=== PATIENT | male | born 1975 | race Two or more races ===

== ENCOUNTER 2024-09-27 17:58 | Inpatient (IN) | payer OTHER, MEDICARE ==
[~2024-09-27] VITALS: Ht 175.3 cm; Wt 75.0 kg
--- NOTE | 2024-09-27 18:14 | ED.PDOC ---
Psychiatric HPI Comments 49 y.o male presents to the ED via EMS for an evaluation of an overdose. 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 Patient had about 51 tablets out of 90 in the bottle but it is unknown when patient refilled rx. Patient had a BG of 62, EMS gave D10 with a repeat BG of 215. Patient presents asymptomatic at this time Chief Complaint: Overdose Time Seen by MD: 17:57 Reviewed Notes: Nurses Notes, Flying Squad Salesperson Notes, Medications, Allergies Information Source: Patient, Emergency Med Personnel Mode of Arrival: EMS Severity: Unable to Care for Self Severity of Pain: None Severity of Mental Status: Moderate Severity of Symptoms: Moderate Timing: Hours Duration: Since onset Presents with: Suicidal Ideation Ingestion: Intentional Circumstance: Medical Clearance Stressors: None History of: None Associated signs and symptoms: Other Past Medical History PAST MEDICAL HISTORY: Depression, MA Surgical History (Other): neck Family History Family History: Reviewed,noncontributory to illness Social History Smoker: Non-Smoker Alcohol: Occasionally Drugs: Denies Drug Use Lives In: Home Constitutional: denies: chills, diaphoresis, fatigue, fever, malaise, sweats, weakness, others EENTM: denies: blurred vision, double vision, ear bleeding, ear discharge, ear drainage, ear pain, ear ringing, eye pain, eye redness, hearing loss, mouth pain, mouth swelling, nasal discharge, nose bleeding, nose congestion, nose pain, photophobia, tearing, throat pain, throat swelling, voice changes, others Respiratory: denies: cough, hemoptysis, orthopnea, SOB at rest, shortness of breath, SOB with excertion, stridor, wheezing, others Cardiovascular: denies: chest pain, dizzy spells, diaphoresis, Dyspnea on exertion, edema, irregular heart beat, left arm pain, lightheadedness, palpitations, PND, syncope, others Gastrointestinal: denies: abdomen distended, abdominal pain, blood streaked bowels, constipated, diarrhea, dysphagia, difficulty swallowing, hematemesis, melena, nausea, poor appetite, poor fluid intake, rectal bleeding, rectal pain, vomiting, others Genitourinary: denies: burning, dysuria, flank pain, frequency, hematuria, incontinence, penile discharge, penile sore, pain, testicle pain, testicle swelling, urgency, others Neurological: denies: dizziness, fainting, headache, left sided numbness, left sided weakness, numbness, paresthesia, pre-existing deficit, right sided numbness, right sided weakness, seizure, speech problems, tingling, tremors, weakness, others Musculoskeletal: denies: back pain, gout, joint pain, joint swelling, muscle pain, muscle stiffness, neck pain, others Integumetry: denies: bruises, change in color, change in hair/nails, dryness, laceration, lesions, lumps, rash, wounds, others Allergic/Immunocompromised: denies: Difficulty Healing, Frequent Infections, Hives, Itching, others Hematologic/Lymphatic: denies: anemia, blood clots, easy bleeding, easy bruising, swollen glands, others Endocrine: denies: excessive hunger, excessive sweating, excessive thirst, excessive urination, flushing, intolerance to cold, intolerance to heat, unexplained weight gain, unexplained weight loss, others Psychiatric: reports: suicidal; denies: anxiety, bipolar disorder, depression, hopeless, panic disorder, schizophrenia, sleepless, others All Other Systems: Reviewed and Negative Physical Exam General Appearance: Moderate Distress HEENT: Pale Conjuntivae (L), Pale Conjuntivae (R), Pharynx Normal, TMs Normal Neck: Full Range of Motion, Non-Tender, Normal, Normal Inspection Respiratory: Chest Non-Tender, Lungs Clear, No Accessory Muscle Use, No Respi ratory Distress, Normal Breath Sounds Cardiovascular: No Edema, No JVD, No Murmur, No Gallop, Normal Peripheral Pulses, Regular Rate/Rhythm Breast Exam: Deferred Gastrointestinal: No Organomegaly, Non Tender, No Pulsatile Mass, Normal Bowel Sounds, Soft Genitalia: Deferred Pelvic: Deferred Rectal: Deferred Extremities: No calf tenderness, Normal capillary refill, No pedal edema Musculoskeletal : Apperance: Normal Neurologic: physiatrist II-XII nml as Tested, Motor Weakness, No Motor Deficits, No Sensory Deficits, Other (The patient has slight lethargy with a flat affect) Cerebellar Function: Unable to Test Reflexes: Normal Skin: Dry, Pallor, Warm Lymphatic: No Adenopathy Was a procedure done? Was a procedure done?: No Psych Differential Dx Psych. Differential Dx: Suicidal OD Differential Dx: Intentional, Suicidal Attempt, Suicidal Gesture X-Ray, Labs, Meds, VS Vital Signs Date Time Temp Pulse Resp B/P (MAP) Pulse Ox O2 Delivery O2 Flow Rate FiO2 09/27/24 18:41 84 16 97 Room Air* 0 21 09/27/24 18:39 98.8 84 16 121/82 (95) 97 98.8 09/27/24 18:04 98.8 84 16 121/82 (95) 97 98.8 Lab Test 09/27/24 19:17 09/27/24 18:48 Range/Units Urine Opiates Screen Pending Urine Fentanyl Screen Pending Urine Barbiturates Screen Pending Urine Phencyclidine Screen Pending Urine Amphetamines Screen Pending Urine Benzodiazepines Screen Pending Urine Cocaine Screen Pending Urine Cannabinoids Screen Pending White Blood Count 10.6 4.4-10.8 10^3/uL Red Blood Count 5.45 4.5-5.90 10^6/uL Hemoglobin 17.2 13.5-17.5 g/dL Hematocrit 50.0 41.0-53.0 % Mean Corpuscular Volume 91.8 80.0-100.0 fL Mean Corpuscular Hemoglobin 31.5 28.0-32.0 pg Mean Corpuscular Hemoglobin Concent 34.3 32.0-36.0 g/dL Red Cell Distribution Width 13.6 11.8-14.3 % Platelet Count 225 140-450 10^3/uL Mean Platelet Volume 7.6 6.9-10.8 fL Neutrophils (%) (Auto) 76.3 37.0-80.0 % Lymphocytes (%) (Auto) 17.2 10.0-50.0 % Monocytes (%) (Auto) 5.2 0.0-12.0 % Eosinophils (%) (Auto) 0.7 0.0-7.0 % Basophils (%) (Auto) 0.6 0.0-2.0 % Neutrophils # (Auto) 8.1 1.6-8.6 10 ^3/uL Lymphocytes # (Auto) 1.8 0.4-5.4 10 ^3/uL Monocytes # (Auto) 0.5 0-1.3 10 ^3/uL Eosinophils # (Auto) 0.1 0-0.8 10 ^3/uL Basophils # (Auto) 0.1 0-0.2 10 ^3/uL Nucleated Red Blood Cells 0.0 % Sodium Level 137 136-145 mmol/L Potassium Level 3.7 3.5-5.1 mmol/L Chloride Level 104 98-107 mmol/L Carbon Dioxide Level 20 20-31 mmol/L Anion Gap 13 5-15 Blood Urea Nitrogen 14 9-23 mg/dL Creatinine 0.94 0.700-1.30 mg/dL Glomerular Filtration Rate Calc 99 >90 mL/min BUN/Creatinine Ratio 14.9 10.0-20.0 Serum Glucose 154 H 74-106 mg/dL Calcium Level 9.3 8.7-10.4 mg/dL Total Bilirubin 0.5 0.2-1.0 mg/dL Aspartate Amino Transferase (AST) 31 13-40 U/L Alanine Aminotransferase (ALT) 27 7-40 U/L Alkaline Phosphatase 71 46-116 U/L Total Protein 7.0 5.7-8.2 g/dL Albumin 4.6 3.2-4.8 g/dL Salicylates Level < 3.0 -30 mg/dL Acetaminophen Level < 2.0 L 10.0-20.0 UG/ML Plasma/Serum Blood Alcohol 185.8 H <10 mg/dL Current Medications Medications (Trade) Dose Ordered Sig/Apurva Route Start Time Stop Time Status Last Admin Sodium Chloride 500 ml @ 500 mls/hr Q1H ONCE IVB 09/27/24 18:15 09/27/24 19:14 DC 09/27/24 18:36 IV Hep-Lock was established The patient was given normal saline at 500 cc bolus The patient is showing an alcohol level of 185 The salicylate level and acetaminophen level are negative We did call poison control and we will continue to monitor the patient's condition We are admitting the patient with a diagnosis of overdose and toxic encephalopathy Time of 1ST Reevaluation: 18:09 Reevaluation 1ST: Unchanged Patient Education/Counseling: Diagnosis, Treatment, Prognosis Family Education/Counseling: No Family Present Departure 1 Departure Time of Disposition: 20:18 Impression: Primary Impression: Intentional overdose Qualified Codes: T50.902A - Poisoning by unspecified drugs, medicaments and biological substances, intentional self-harm, initial encounter Additional Impressions: Toxic encephalopathy Qualified Codes: G92.9 - Unspecified toxic encephalopathy Suicide gesture Qualified Codes: X83.8XXA - Intentional self-harm by other specified means, initial encounter Disposition: 09 ADMITTED INPATIENT Admit to: Tele Condition: Fair Critical Care Note Critical Care Time?: Yes (35 min-critical care time only) Stability Stability form required: Yes Unstable for transfer: Telemetry monitoring (Telemetry monitoring required), ED Physician Assesment (Clinical assesment) I personally scribed for GIOVANNI LEDESMA MD ([email or web address]) on 09/27/24 at 18:14. Electronically submitted by Kina Sorensen ([facility]). GIOVANNI LEDESMA MD Sep 27, 2024 18:14
[2024-09-27] MEDS: SODIUM CHLORIDE 0.9% 500 ML IVB ONE (18:36)
[2024-09-27 18:41] VITALS: PULSE 84; RESP 16; O2SAT 97
[2024-09-27 19:15] LABS: Hematocrit 50.0 % (41.0-53.0); Hemoglobin 17.2 g/dL (13.5-17.5); Mean Corpuscular Hemoglobin 31.5 pg (28.0-32.0); Mean Corpuscular Volume 91.8 fL (80.0-100.0); Nucleated Red Blood Cells % 0.0 %
[2024-09-27 19:30] LABS: Alanine Aminotransferase 27 U/L (7-40); Alkaline Phosphatase 71 U/L (46-116); Anion Gap 13 (5-15); BUN/Creatinine Ratio 14.9 (10.0-20.0); Blood Urea Nitrogen 14 mg/dL (9-23); Calcium 9.3 mg/dL (8.7-10.4); Carbon Dioxide 20 mmol/L (20-31); Chloride 104 mmol/L (98-107); Potassium 3.7 mmol/L (3.5-5.1); Sodium 137 mmol/L (136-145); Total Protein 7.0 g/dL (5.7-8.2)
[2024-09-27 19:31] LABS: Albumin 4.6 g/dL (3.2-4.8); Bilirubin, Total 0.5 mg/dL (0.2-1.0)
[2024-09-27 19:33] LABS: Acetaminophen < 2.0 UG/ML (10.0-20.0); Glucose 154 mg/dL (74-106); Salicylate < 3.0 mg/dL (-30)
[2024-09-27 19:35] VITALS: PULSE 84; RESP 12; O2SAT 98
[2024-09-27 20:19] LABS: Amphetamine Screen, Urine Neg (NEGATIVE); Barbiturate Scree,Urine Neg (NEGATIVE); Benzodiazephine Screen, Urine Neg (NEGATIVE); Cannabinoid Screen, Urine Neg (NEGATIVE); Cocaine Screen, Urine Neg (NEGATIVE); Opiate Scree,Urine Neg (NEGATIVE); Phencyclidine Screen, Urine Neg (NEGATIVE)
--- NOTE | 2024-09-27 23:54 | DVHHP2 ---
History of Present Illness Reason for Visit: Overdose History of Present Illness 49-year-old male presents for evaluation of medication overdose. Patient reports taking an unknown amount of trazodone pills in an attempt to end his life. Patient does not want to discuss details. He denies dizziness blurred vision, cardiac or respiratory complaints. Past Medical History Liver disease, mi, depression Past Surgical History Denies Family History Noncontributory Smoke: No ALCOHOL: occassional Drugs: None Review of Systems Review of Systems Review of systems are currently negative otherwise addressed in HPI. Allergies: Coded Allergies: NO KNOWN ALLERGIES (Unverified , 09/27/24) Exam Vital Signs Vital Signs Date Time Temp Pulse Resp B/P (MAP) Pulse Ox O2 Delivery O2 Flow Rate FiO2 09/27/24 18:41 84 16 97 Room Air* 0 21 09/27/24 18:39 98.8 121/82 (95) 98.8 Exam Gen: 49-year-old male in no apparent distress. Skin: Warm, dry, normal color and texture, no rash. HEENT: Normocephalic atraumatic, mucous membranes moist and pink. Neck: Cervical and supraclavicular nodes normal without enlargement, trachea is midline, thyroid gland is normal without masses. Pulmonary: Clear to auscultation and percussion bilaterally. Cardiac: Regular rate and rhythm. No murmur Abdomen: Soft, nontender, nondistended, bowel sounds present all 4 quadrants, no guarding, no rigidity, no organomegaly. Extremities: No cyanosis, clubbing, no edema Neuro: Cranial nerves II through XII grossly intact, normal affect and speech, no focal motor deficits. Labs/Xrays Labs Test 09/27/24 19:17 09/27/24 18:48 Range/Units Urine Opiates Screen Neg NEGATIVE Urine Fentanyl Screen Neg NEGATIVE Urine Barbiturates Screen Neg NEGATIVE Urine Phencyclidine Screen Neg NEGATIVE Urine Amphetamines Screen Neg NEGATIVE Urine Benzodiazepines Screen Neg NEGATIVE Urine Cocaine Screen Neg NEGATIVE Urine Cannabinoids Screen Neg NEGATIVE White Blood Count 10.6 4.4-10.8 10^3/uL Red Blood Count 5.45 4.5-5.90 10^6/uL Hemoglobin 17.2 13.5-17.5 g/dL Hematocrit 50.0 41.0-53.0 % Mean Corpuscular Volume 91.8 80.0-100.0 fL Mean Corpuscular Hemoglobin 31.5 28.0-32.0 pg Mean Corpuscular Hemoglobin Concent 34.3 32.0-36.0 g/dL Red Cell Distribution Width 13.6 11.8-14.3 % Platelet Count 225 140-450 10^3/uL Mean Platelet Volume 7.6 6.9-10.8 fL Neutrophils (%) (Auto) 76.3 37.0-80.0 % Lymphocytes (%) (Auto) 17.2 10.0-50.0 % Monocytes (%) (Auto) 5.2 0.0-12.0 % Eosinophils (%) (Auto) 0.7 0.0-7.0 % Basophils (%) (Auto) 0.6 0.0-2.0 % Neutrophils # (Auto) 8.1 1.6-8.6 10 ^3/uL Lymphocytes # (Auto) 1.8 0.4-5.4 10 ^3/uL Monocytes # (Auto) 0.5 0-1.3 10 ^3/uL Eosinophils # (Auto) 0.1 0-0.8 10 ^3/uL Basophils # (Auto) 0.1 0-0.2 10 ^3/uL Nucleated Red Blood Cells 0.0 % Sodium Level 137 136-145 mmol/L Potassium Level 3.7 3.5-5.1 mmol/L Chloride Level 104 98-107 mmol/L Carbon Dioxide Level 20 20-31 mmol/L Anion Gap 13 5-15 Blood Urea Nitrogen 14 9-23 mg/dL Creatinine 0.94 0.700-1.30 mg/dL Glomerular Filtration Rate Calc 99 >90 mL/min BUN/Creatinine Ratio 14.9 10.0-20.0 Serum Glucose 154 H 74-106 mg/dL Calcium Level 9.3 8.7-10.4 mg/dL Total Bilirubin 0.5 0.2-1.0 mg/dL Aspartate Amino Transferase (AST) 31 13-40 U/L Alanine Aminotransferase (ALT) 27 7-40 U/L Alkaline Phosphatase 71 46-116 U/L Total Protein 7.0 5.7-8.2 g/dL Albumin 4.6 3.2-4.8 g/dL Salicylates Level < 3.0 -30 mg/dL Acetaminophen Level < 2.0 L 10.0-20.0 UG/ML Plasma/Serum Blood Alcohol 185.8 H <10 mg/dL SEPSIS Sepsis Screen Date sepsis recognized/suspect: Sep 27, 2024 Time Sepsis recognized/suspect: 1757 Recent Procedure: No On Antibiotic Therapy: No Respiratory Rate >20: No Heart Rate >90: No Temp<36 C (96.8 F) or >38.3 C: No SBP <90 or MAP <65 mmHG: No New Acute Mental Status Change: No Is the patient on CPAP, BIPAP,: No Physician Orders Building Maintenance Repairer (09/27/24 18:09) Blood Pressure (09/27/24 18:09) Pulse Oximetry (09/27/24 18:09) Heplock Iv (09/27/24 18:09) Electrocardigram (09/27/24 18:09) * Psychiatric Consult (09/27/24 23:49) Regular Diet (09/28/24 Breakfast) Admit (09/27/24 23:49) Ondansetron Hcl (Zofran) (09/28/24 00:00) Complete Blood Count (09/28/24 04:00) Comprehensive Metabolic Panel (09/28/24 04:00) Condition: Stable (09/27/24 23:49) Acetaminophen Tablet (Tylenol Tablet) (09/28/24 00:00) Bedrest With Bathroom Privileg (09/27/24 23:49) Vital Signs Date Time Temp Pulse Resp B/P (MAP) Pulse Ox O2 Delivery O2 Flow Rate FiO2 09/27/24 18:41 84 16 97 Room Air* 0 21 09/27/24 18:39 98.8 84 16 121/82 (95) 97 98.8 09/27/24 18:04 98.8 84 16 121/82 (95) 97 98.8 Laboratory Tests Test 09/27/24 18:48 White Blood Count 10.6 10^3/uL (4.4-10.8) Medications Medications Dose Ordered Sig/Apurva Route Start Time Stop Time Status Last Admin Dose Admin Sodium Chloride 500 ml @ 500 mls/hr Q1H ONCE IVB 09/27/24 18:15 09/27/24 19:14 DC 09/27/24 18:36 500 MLS/HR Assessment/Plan Assessment/Plan Assessment Toxic encephalopathy Alcohol intoxication Suicide attempt Medication overdose Plan Admit the patient to [facility] to the hospitalist Psychiatric evaluation Continue treatment per orders. Plan discussed with: Patient My Orders Orders - EDWIGE LEWIS Procedure Category Date Status Time * Psychiatric Consult CONS 09/27/24 Verified 23:49 Regular Diet DIET 09/28/24 Verified Breakfast Admit ADMIT 09/27/24 Verified 23:49 Ondansetron Hcl PHA 09/28/24 Verified (Zofran) 00:00 Complete Blood Count LAB 09/28/24 Verified 04:00 Comprehensive LAB 09/28/24 Verified Metabolic Panel 04:00 Condition: Stable ANURAG 09/27/24 Verified 23:49 Acetaminophen Tablet PHA 09/28/24 Verified (Tylenol Tablet) 00:00 Bedrest With Bathroom ANURAG 09/27/24 Verified Privileg 23:49 Date of Service: Sep 27, 2024 Billing Provider: EDWIGE LEWIS Common Visit Codes: [id number] INP/OBS CARE (HIGH) EDWIGE LEWIS Sep 27, 2024 23:54
[2024-09-28] MEDS ORDERED: ACETAMINOPHEN 325 MG TAB PO PRN
[2024-09-28] MEDS ORDERED: ONDANSETRON HCL 4 MG/2 ML VIAL IV PRN
[2024-09-28] MEDS: SODIUM CHLORIDE 0.9% 1,000 ML IV ONE (00:30)
--- NOTE | 2024-09-28 02:32 | DVHINCON2 ---
Date of Service if different f: Sep 28, 2024 Time of Service: 02:08 Consultation ([facility]) Consulting Physician: JANIYA HERNANDEZ MD Labs Laboratory Tests Test 09/27/24 18:48 09/27/24 19:17 White Blood Count 10.6 10^3/uL (4.4-10.8) Red Blood Count 5.45 10^6/uL (4.5-5.90) Hemoglobin 17.2 g/dL (13.5-17.5) Hematocrit 50.0 % (41.0-53.0) Mean Corpuscular Volume 91.8 fL (80.0-100.0) Mean Corpuscular Hemoglobin 31.5 pg (28.0-32.0) Mean Corpuscular Hemoglobin Concent 34.3 g/dL (32.0-36.0) Red Cell Distribution Width 13.6 % (11.8-14.3) Platelet Count 225 10^3/uL (140-450) Mean Platelet Volume 7.6 fL (6.9-10.8) Neutrophils (%) (Auto) 76.3 % (37.0-80.0) Lymphocytes (%) (Auto) 17.2 % (10.0-50.0) Monocytes (%) (Auto) 5.2 % (0.0-12.0) Eosinophils (%) (Auto) 0.7 % (0.0-7.0) Basophils (%) (Auto) 0.6 % (0.0-2.0) Neutrophils # (Auto) 8.1 10 ^3/uL (1.6-8.6) Lymphocytes # (Auto) 1.8 10 ^3/uL (0.4-5.4) Monocytes # (Auto) 0.5 10 ^3/uL (0-1.3) Eosinophils # (Auto) 0.1 10 ^3/uL (0-0.8) Basophils # (Auto) 0.1 10 ^3/uL (0-0.2) Nucleated Red Blood Cells 0.0 % Sodium Level 137 mmol/L (136-145) Potassium Level 3.7 mmol/L (3.5-5.1) Chloride Level 104 mmol/L (98-107) Carbon Dioxide Level 20 mmol/L (20-31) Anion Gap 13 (5-15) Blood Urea Nitrogen 14 mg/dL (9-23) Creatinine 0.94 mg/dL (0.700-1.30) Glomerular Filtration Rate Calc 99 mL/min (>90) BUN/Creatinine Ratio 14.9 (10.0-20.0) Serum Glucose 154 mg/dL (74-106) Calcium Level 9.3 mg/dL (8.7-10.4) Total Bilirubin 0.5 mg/dL (0.2-1.0) Aspartate Amino Transf (AST/SGOT) 31 U/L (13-40) Alanine Aminotransferase (ALT/SGPT) 27 U/L (7-40) Alkaline Phosphatase 71 U/L (46-116) Total Protein 7.0 g/dL (5.7-8.2) Albumin 4.6 g/dL (3.2-4.8) Salicylates Level < 3.0 mg/dL (-30) Acetaminophen Level < 2.0 UG/ML (10.0-20.0) Plasma/Serum Blood Alcohol 185.8 mg/dL (<10) Urine Opiates Screen Neg (NEGATIVE) Urine Fentanyl Screen Neg (NEGATIVE) Urine Barbiturates Screen Neg (NEGATIVE) Urine Phencyclidine Screen Neg (NEGATIVE) Urine Amphetamines Screen Neg (NEGATIVE) Urine Benzodiazepines Screen Neg (NEGATIVE) Urine Cocaine Screen Neg (NEGATIVE) Urine Cannabinoids Screen Neg (NEGATIVE) Appearance: Stated age Psychomotor activity: WNL Behavioral: Cooperative Eye contact: Appropriate Speech: WNL Affect: Appropriate, Mood Congruent Mood: Depressed Thought processes: Linear/Goal-directed Thought content: WNL Suicidal ideations: Absent Homicidal ideations: Absent Orientation: Person, Place, Time, Situation Memory intact: Recent Intellect: Average Abstractability: WNL Concentration: Adequate Attention: Adequate Judgement: WNL Insight: Fair Vitals Vital Signs Date Time Temp Pulse Resp B/P (MAP) Pulse Ox O2 Delivery O2 Flow Rate FiO2 09/28/24 00:00 87 15 126/82 (97) 93 09/27/24 20:00 97.8 97.8 09/27/24 19:35 Room Air* 0 21 Current medications Current Medications Medications Dose Ordered Sig/Apurva Route Start Time Stop Time Status Last Admin Dose Admin Ondansetron HCl 4 mg Q4HP PRN IV 09/28/24 00:00 Acetaminophen 650 mg Q6HP PRN PO 09/28/24 00:00 Treatment plan discussed: With staff Medication adjusted: No Labs ordered: No Psychotherapy provided: No Type: Voluntary History of Present Illness Reason for Consult : psychiatric evaluation PER ED PHYSICIAN NOTE:49 y.o male presents to the ED via EMS for an evaluation of an overdose. 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 Patient had about 51 tablets out of 90 in the bottle but it is unknown when patient refilled rx. Patient had a BG of 62, EMS gave D10 with a repeat BG of 215. Patient presents asymptomatic at this time PSYCHIATRIST HPI: The patient was seen and evalauted at [facility] ED via telepsychiatry platform. 49 yr old male BIBMiles after taking an overdose on Trazodone. The patient reported that he took some extra trazodone pills because was unable to sleep. He stated "I don't know if I wanted to or just go to sleep." He noted he has had some suicidal thoughts due to feeling down and dep ressed. He reported he takes trazodone at night so he can sleep. If he doesn't take it, his sleep is poor. He stated he took a few extra tonight and didn't realize it would hit him this hard. He stated he feels like he should see the [facility] psychiatrist soon. He stated he does not feel suicidal currently and reported he feels comfortable returning. He denied having suicidal or homicidal ideation, plan or intent. He denied having auditory or visual hallucinations.. Past Psychiatric History : Diagnosed with depression and PTSD at [facility]. Gets care at [facility] in [place]. No past psych hospitalizations. Past Medical History: GERD, shattered C3-C7 Current Medications: Trazodone 100mg qhs, omeprazole, spironolactone, NKDA Substance use: Alcohol-heavy use in the past. Drinks an occasional beer or two. Denied other substance use. 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 100% service connected. Receives disability from [employer]. Diagnosis: UNSPECIFIED DEPRESSIVE DISORDER; H/O PTSD Formulation: This 49 yr old male appears to suffer from depression and PTSD. He is not suicidal and does not warrant admission to a behavioral health unit. Plan: 1. Safety. The patient is a low risk for self harm and may be managed as an outpatient. 2. Legal-Voluntary. 3. Medication:continue present outpatient regimen. 4. Contact psychiatry if further evaluation or follow up is desired. 5. Case discussed with ED physician. Assessment/Diagnosis/Plan Reviewed: Labs, Medications, Previous Orders JANIYA HERNANDEZ MD Sep 28, 2024 02:10
[2024-09-28 06:50] LABS: Hematocrit 44.8 % (41.0-53.0); Hemoglobin 15.9 g/dL (13.5-17.5); Mean Corpuscular Hemoglobin 32.2 pg (28.0-32.0); Mean Corpuscular Volume 90.8 fL (80.0-100.0); Nucleated Red Blood Cells % 0.1 %
[2024-09-28 06:53] LABS: Alanine Aminotransferase 21 U/L (7-40); Alkaline Phosphatase 69 U/L (46-116); Anion Gap 8 (5-15); BUN/Creatinine Ratio 18.9 (10.0-20.0); Blood Urea Nitrogen 20 mg/dL (9-23); Calcium 9.3 mg/dL (8.7-10.4); Carbon Dioxide 23 mmol/L (20-31); Potassium 4.2 mmol/L (3.5-5.1); Sodium 139 mmol/L (136-145); Total Protein 6.3 g/dL (5.7-8.2)
[2024-09-28 06:54] LABS: Albumin 4.2 g/dL (3.2-4.8); Bilirubin, Total 0.7 mg/dL (0.2-1.0)
[2024-09-28 06:58] LABS: Chloride 108 mmol/L (98-107); Glucose 108 mg/dL (74-106)
[2024-09-28 07:30] VITALS: TEMP 98
--- NOTE | 2024-09-28 11:06 | ECG ---
[facility] Test Date: 2024-09-27 Test Time: 18:01:49 Pat Name: JAXON SCOTT Department: ED Room: [address] [place] [address] A Gender: M Creative Intern: haylee : 1975 Requested By: GIOVANNI LEDESMA Order Number: [id number] Reading MD: Miko Workman Measurements Intervals [place] Rate: 85 P: 64 NV: 187 QRS: -23 QRSD: 90 T: 57 QT: 380 QTc: 452 Interpretive Statements Sinus rhythm Borderline left axis deviation ST elev, probable normal early repol pattern Electronically Signed On 09-29-2024 17:50:48 PDT by Miko Workman Please click the below link to view image of tracing.
--- NOTE | 2024-09-28 13:08 | DVHDS2 ---
Discharge Summary Date of Admission Sep 27, 2024 at 23:49 Date of Discharge: Sep 28, 2024 Labs/Diagnostic Data: Laboratory Results Test 09/28/24 05:59 09/27/24 19:17 09/27/24 18:48 White Blood Count 10.7 10^3/uL (4.4-10.8) Red Blood Count 4.94 10^6/uL (4.5-5.90) Hemoglobin 15.9 g/dL (13.5-17.5) Hematocrit 44.8 % (41.0-53.0) Mean Corpuscular Volume 90.8 fL (80.0-100.0) Mean Corpuscular Hemoglobin 32.2 pg (28.0-32.0) Mean Corpuscular Hemoglobin Concent 35.4 g/dL (32.0-36.0) Red Cell Distribution Width 13.3 % (11.8-14.3) Platelet Count 210 10^3/uL (140-450) Mean Platelet Volume 8.0 fL (6.9-10.8) Neutrophils (%) (Auto) 69.3 % (37.0-80.0) Lymphocytes (%) (Auto) 19.2 % (10.0-50.0) Monocytes (%) (Auto) 9.1 % (0.0-12.0) Eosinophils (%) (Auto) 1.8 % (0.0-7.0) Basophils (%) (Auto) 0.6 % (0.0-2.0) Neutrophils # (Auto) 7.4 10 ^3/uL (1.6-8.6) Lymphocytes # (Auto) 2.0 10 ^3/uL (0.4-5.4) Monocytes # (Auto) 1.0 10 ^3/uL (0-1.3) Eosinophils # (Auto) 0.2 10 ^3/uL (0-0.8) Basophils # (Auto) 0.1 10 ^3/uL (0-0.2) Nucleated Red Blood Cells 0.1 % Sodium Level 139 mmol/L (136-145) Potassium Level 4.2 mmol/L (3.5-5.1) Chloride Level 108 mmol/L (98-107) Carbon Dioxide Level 23 mmol/L (20-31) Anion Gap 8 (5-15) Blood Urea Nitrogen 20 mg/dL (9-23) Creatinine 1.06 mg/dL (0.700-1.30) Glomerular Filtration Rate Calc 86 mL/min (>90) BUN/Creatinine Ratio 18.9 (10.0-20.0) Serum Glucose 108 mg/dL (74-106) Calcium Level 9.3 mg/dL (8.7-10.4) Total Bilirubin 0.7 mg/dL (0.2-1.0) Aspartate Amino Transferase (AST) 29 U/L (13-40) Alanine Aminotransferase (ALT) 21 U/L (7-40) Alkaline Phosphatase 69 U/L (46-116) Total Protein 6.3 g/dL (5.7-8.2) Albumin 4.2 g/dL (3.2-4.8) Urine Opiates Screen Neg (NEGATIVE) Urine Fentanyl Screen Neg (NEGATIVE) Urine Barbiturates Screen Neg (NEGATIVE) Urine Phencyclidine Screen Neg (NEGATIVE) Urine Amphetamines Screen Neg (NEGATIVE) Urine Benzodiazepines Screen Neg (NEGATIVE) Urine Cocaine Screen Neg (NEGATIVE) Urine Cannabinoids Screen Neg (NEGATIVE) Salicylates Level < 3.0 mg/dL (-30) Acetaminophen Level < 2.0 UG/ML (10.0-20.0) Plasma/Serum Blood Alcohol 185.8 mg/dL (<10) Other Laboratory Tests 09/28/24 05:59 Brief Hx & Hospital Course: Final diagnoses: Depression Drug overdose PTSD Insomnia No suicidal attempt or ideation History of GERD History of cervical spine injury 49-year-old male who was admitted because he took extra pills of his trazodone. He takes trazodone 100 mg at bedtime usually but last night he took extra because he could not sleep. He denies suicidal ideation or attempt He has depression and he sees a psychiatrist He has insomnia Use seen by Psychiatry consultation and he was deemed not a suicidal and low risk for self-harm and therefore he was cleared for discharge The patient would like to go home Discharged home Follow up with his primary care physician Follow up with his psychiatrist as scheduled Continue trazodone 100 mg at bedtime Condition at Discharge: Stable Final Diagnosis/Problems List Depression Drug OD PTSD Discharge Disposition: Home SNF Discharge Will this Physician continue t: No Discharge Instruct/Medications Diet: Regular Activity: No Restrictions, As Tolerated Follow Up/Referral: PCP KATHY His psychiatrist as scheduled Medications: Same home meds (Trazodone 100 mg qhs) Discharge Statement: "Patient was advised to return to the ER or call 911 if any headaches, dizziness, shortness of breath, chest pain, abdominal pain, bleeding, fevers, or worsening of medical condition. Patient was counseled about treatment plan, medications, possible side effects, patientverbalized understanding. All questions were answered to the best of my ability. This discharge took greater then 30 minutes in planning, reviewing documentation, counseling the patient, and discussing with other team members." ASSESSMENT ASSESSMENT Assessment Depression Drug OD PTSD Date of Service: Sep 28, 2024 Billing Provider: STEVEN SHARMA MD Common Visit Codes: 03056-TFG/OBS DISCH DAY >30min STEVEN SHARMA MD Sep 28, 2024 13:08
[2024-09-28 13:30] VITALS: BP 125/85; PULSE 71; RESP 17; O2SAT 96
== END 2024-09-28 16:25 | disposition home or self-care (01) | DRG 917 ==
LOC: ER 17:58 → EDBD 17:58 → OVERFLOW 23:49 → UNDODEPER 09-28 14:05
PROVIDERS: ADMIT Internal Medicine Geriatric Medicine; ATTEND Internal Medicine Geriatric Medicine
DX: T43.212A Poisoning by selective serotonin and norepinephrine reuptake inhibitors, intentional self-harm, initial encounter (principal); G92.9 Unspecified toxic encephalopathy; F10.129 Alcohol abuse with intoxication, unspecified; F32.A Depression, unspecified; F43.10 Post-traumatic stress disorder, unspecified; K21.9 Gastro-esophageal reflux disease without esophagitis; G47.00 Insomnia, unspecified; Z79.899 Other long term (current) drug therapy; Y92.89 Other specified places as the place of occurrence of the external cause
CPT/HCPCS: 36415; 80053; 80307; 80320; 80329; 85025; 93005; 99291; G0378